=== PATIENT | female | born 1955 | race Caucasian/White ===

== ENCOUNTER 2021-06-26 20:14 | Emergency (ER) | payer MEDICARE ==
--- NOTE | 2021-06-26 20:34 | EDM.PDOC ---
<Huber Vital - Last Filed: 06/26/21 23:34> ED HPI GENERAL MEDICAL PROBLEM - General Chief Complaint: Fever Stated Complaint: FEVER FOR 15 DAYS, CAN'T EAT Time Seen by Provider: 06/26/21 20:18 - Related Data Allergies Allergy/AdvReac Type Severity Reaction Status Date / Time No Known Allergies Allergy Verified 06/26/21 20:32 Home Meds: Home Meds Magnesium Chloride [Magnesium] 64 mg PO BID 10 Days #20 tablet 06/26/21 [Rx] Course - Vital Signs Text/Narrative:: Monoclonal antibodies offered because of age but patient not sure she will take it Departure - Departure Time of Disposition: 23:34 Disposition: Home, Self-Care 01 Clinical Impression: Hypomagnesemia, COVID-19 - Discharge Information Prescriptions: Magnesium Chloride [Magnesium] 64 mg PO BID 10 Days #20 tablet Instructions: Hypomagnesemia, Viral Illness, Adult Referrals: PCP,None [Primary Care Provider] - Forms: ED Department Discharge Additional Instructions: Drink plenty of fluids [facility] - Primary Care [address] [place] [address] [id number] [address] [address] The following information is given to patients seen in the emergency department who are being discharged to home. This information is to outline your options for follow-up care. We provide all patients seen in our emergency department with a follow-up referral. The need for follow-up, as well as the timing and circumstances, are variable depending upon the specifics of your emergency department visit. If you don't have a primary care physician on staff, we will provide you with a referral. We always advise you to contact your personal physician following an emergency department visit to inform them of the circumstance of the visit and for follow-up with them and/or the need for any referrals to a consulting specialist. The emergency department will also refer you to a specialist when appropriate. This referral assures that you have the opportunity for follow-up care with a specialist. All of these measure are taken in an effort to provide you with optimal care, which includes your follow-up. Under all circumstances we always encourage you to contact your private physician who remains a resource for coordinating your care. When calling for follow-up care, please make the office aware that this follow-up is from your recent emergency room visit. If for any reason you are refused follow-up, please contact the [facility] Emergency Department at and asked to speak to the emergency department charge nurse. <SumterAlison E - Last Filed: 06/27/21 09:58> ED HPI GENERAL MEDICAL PROBLEM - General Source of Information: Reports: Patient History Limitations: Reports: No Limitations - History of Present Illness INITIAL COMMENTS - FREE TEXT/NARRATIVE: HISTORY AND PHYSICAL: History of present illness: Patient is a 65-year-old female who presents to the emergency room with concerns of subjective fevers, chills, decreased appetite x 2 weeks. Patient had a traumatic fall 9 weeks ago, which resulted in fractured ribs, pelvis and back. She had surgery (rods) to her thoracic and lumbar spine 9 weeks ago. She has not had any postoperative complications, incision site drainage/redness/swelling or unmanageable back/surgical site pain. She states she has had no appetite and when she tries to eat or drink she dry heaves. Patient denies any headache, change in vision, syncope or near syncope. Denies any chest pain, back pain, shortness of breath or cough. Denies any abdominal pain, diarrhea, constipation or dysuria. Has not noted any blood in urine or stool. Review of systems: As per history of present illness and below otherwise all systems reviewed and negative. Past medical history: As per history of present illness and as reviewed below otherwise noncontributory. Surgical history: As per history of present illness and as reviewed below otherwise noncontributory. Social history: See social history for further information Family history: As per history of present illness and as reviewed below otherwise noncontributory. Physical exam: General: Well developed and well nourished 65 year old female. Alert and orientated x 3. Nontoxic in appearance and in no acute distress. Vital signs are stable and have been reviewed by me. Nursing notes were reviewed. HEENT: Atraumatic, normocephalic, pupils equal and reactive bilaterally, negative for conjunctival pallor or scleral icterus, mucous membranes moist, TMs normal bilaterally, throat clear, neck supple, nontender, trachea midline. No drooling or trismus noted. No meningeal signs. No hot potato voice noted. Lungs: Clear to auscultation bilaterally. No wheezes, rales, or rhonchi. Chest nontender. Normal work of breathing, no accessory muscles used. Heart: S1S2, regular rate and rhythm without overt murmur, gallops, or rubs. No JVD. No peripheral edema Abdomen: Soft, nondistended, nontender. Normoactive bowel sounds. Negative for masses or costovertebral tenderness. Skin: Intact, warm, dry. No lesions or rashes noted. Hematologic: No petechiae or purpra. Mucosa appropriate color and normal nail bed color and refill. Extremities: Atraumatic, moves all extremities per self without difficulty or deficits, negative for cords or calf pain. Neurovascular unremarkable. Neuro: Awake, alert, oriented. Cranial nerves II through XII unremarkable. Cerebellum unremarkable. Motor and sensory unremarkable throughout. Exam nonfocal. Psychiatric: Mood and affect are appropriate. Normal thought process. Answering questions appropriately. Notes: *This patient was seen and evaluated during the 2019 SARS-CoV-2 novel coronavirus pandemic period. Community viral transmission is ongoing at time of this encounter and the emergency department is operating under pandemic response procedures. Patient is a 65-year-old female who presents to the emergency room with complaints of subjective fever, chills, nausea with dry heaves, and decreased appetite. Patient states she has had little to no p.o. intake over the past 2 weeks. She has yet to follow-up with her primary care provider. Her who is with her states he has not had any symptoms and overall feels well. Patient does appear clinically dehydrated. She has no chest, back, abdomen or pelvis pain. I did look at her incision from her surgery, appears like it is healing well. She states she has not had any postoperative complications. We will do basic lab work, COVID-19/influenza screening along with a chest x-ray. Due to recent surgery I will get blood cultures and a lactate. Patient's magnesium is low, will replace with IV magnesium 2 g. COVID-19 is positive. She does feel improved after fluids. We did do a PO challenge, successful. I have talked with the patient about today's findings, in addition to providing specific details for plan of care. Reassessment at the time of disposition demonstrates that the patient is in no acute distress. The patient is stable for discharge, counseling was provided and we discussed in great detail signs and symptoms that would prompt them to return to the Emergency Department. Medication, follow up and supportive care measures were reviewed and discussed. Voices understanding and is agreeable to plan of care. Denies any further questions or concerns at this time. Diagnostics: CBC, CMP, Magnesium, CXR, COVID, Influenza, [employer]: IV fluids, Magnesium 2 gm, Zofran Impression: Hypomagnesemia COVID-19 Definitive disposition and diagnosis as appropriate pending reevaluation and review of above. ED ROS GENERAL - Review of Systems Review Of Systems: Comprehensive ROS is negative, except as noted in HPI. ED EXAM, GENERAL - Physical Exam Exam: See Below (See dictation) Course - Vital Signs Last Recorded V/S: Last Vital Signs Temp 98 F 06/26/21 23:40 Pulse 62 06/26/21 23:40 Resp 18 06/26/21 23:40 BP 136/70 06/26/21 23:40 Pulse Ox 98 06/26/21 23:40 - Orders/Labs/Meds Orders: Active Orders 24 hr Category Date Time Status CULTURE BLOOD [BC] Stat Lab 06/26/21 20:45 Received CULTURE BLOOD [BC] Stat Lab 06/26/21 20:54 Received Blood Culture x2 Reflex Set [OM.PC] Stat Oth 06/26/21 20:25 Ordered Isolation [COMM] Routine Oth 06/26/21 20:27 Active Labs: Laboratory Tests 06/26/21 06/26/21 06/26/21 Range/Units 20:45 20:45 20:45 WBC 3.90 L (4.0-11.0) K/uL RBC 4.08 L (4.30-5.90) M/uL Hgb 12.1 (12.0-16.0) g/dL Hct 34.8 L (36.0-46.0) % MCV 85.3 (80.0-98.0) fL MCH 29.7 (27.0-32.0) pg MCHC 34.8 (31.0-37.0) g/dL RDW Std Deviation 44.2 (28.0-62.0) fl RDW Coeff of Joss 14 (11.0-15.0) % Plt Count 201 (150-400) K/uL MPV 10.70 (7.40-12.00) fL Neut % (Auto) 70.5 (48.0-80.0) % Lymph % (Auto) 14.1 L (16.0-40.0) % Wetzel % (Auto) 15.4 H (0.0-15.0) % Eos % (Auto) 0.0 (0.0-7.0) % Baso % (Auto) 0.0 (0.0-1.5) % Neut # (Auto) 2.8 (1.4-5.7) K/uL Lymph # (Auto) 0.6 (0.6-2.4) K/uL Wetzel # (Auto) 0.6 (0.0-0.8) K/uL Eos # (Auto) 0.0 (0.0-0.7) K/uL Baso # (Auto) 0.0 (0.0-0.1) K/uL Nucleated RBC % 0.0 /100WBC Nucleated RBCs # 0 K/uL Sodium 136 (136-145) mmol/L Potassium 4.0 (3.5-5.1) mmol/L Chloride 101 (98-107) mmol/L Carbon Dioxide 21.1 (21.0-32.0) mmol/L BUN 17 (7.0-18.0) mg/dL Creatinine 1.2 H (0.6-1.0) mg/dL Est Cr Clr Drug Dosing 43.17 mL/min Estimated GFR (MDRD) 44.9 ml/min Glucose 115 H (74-106) mg/dL Lactic Acid 1.2 (0.4-2.0) mmol/L Calcium 8.3 L (8.5-10.1) mg/dL Magnesium 1.3 L (1.8-2.4) mg/dL Total Bilirubin 0.4 (0.2-1.0) mg/dL AST 29 (15-37) IU/L ALT 23 (14-63) IU/L Alkaline Phosphatase 69 (46-116) U/L Troponin I 0.055 (0.000-0.056) ng/mL Total Protein 6.5 (6.4-8.2) g/dL Albumin 3.0 L (3.4-5.0) g/dL Globulin 3.5 (2.6-4.0) g/dL Albumin/Globulin Ratio 0.9 (0.9-1.6) SARS-CoV-2 RNA (JJ) (NEGATIVE) 06/26/21 Range/Units 20:45 WBC (4.0-11.0) K/uL RBC (4.30-5.90) M/uL Hgb (12.0-16.0) g/dL Hct (36.0-46.0) % MCV (80.0-98.0) fL MCH (27.0-32.0) pg MCHC (31.0-37.0) g/dL RDW Std Deviation (28.0-62.0) fl RDW Coeff of Joss (11.0-15.0) % Plt Count (150-400) K/uL MPV (7.40-12.00) fL Neut % (Auto) (48.0-80.0) % Lymph % (Auto) (16.0-40.0) % Wetzel % (Auto) (0.0-15.0) % Eos % (Auto) (0.0-7.0) % Baso % (Auto) (0.0-1.5) % Neut # (Auto) (1.4-5.7) K/uL Lymph # (Auto) (0.6-2.4) K/uL Wetzel # (Auto) (0.0-0.8) K/uL Eos # (Auto) (0.0-0.7) K/uL Baso # (Auto) (0.0-0.1) K/uL Nucleated RBC % /100WBC Nucleated RBCs # K/uL Sodium (136-145) mmol/L Potassium (3.5-5.1) mmol/L Chloride (98-107) mmol/L Carbon Dioxide (21.0-32.0) mmol/L BUN (7.0-18.0) mg/dL Creatinine (0.6-1.0) mg/dL Est Cr Clr Drug Dosing mL/min Estimated GFR (MDRD) ml/min Glucose (74-106) mg/dL Lactic Acid (0.4-2.0) mmol/L Calcium (8.5-10.1) mg/dL Magnesium (1.8-2.4) mg/dL Total Bilirubin (0.2-1.0) mg/dL AST (15-37) IU/L ALT (14-63) IU/L Alkaline Phosphatase (46-116) U/L Troponin I (0.000-0.056) ng/mL Total Protein (6.4-8.2) g/dL Albumin (3.4-5.0) g/dL Globulin (2.6-4.0) g/dL Albumin/Globulin Ratio (0.9-1.6) SARS-CoV-2 RNA (JJ) POSITIVE H (NEGATIVE) Meds: Medications Discontinued Medications Generic Name Dose Route Start Last Admin Trade Name Freq PRN Reason Stop Dose Admin Sodium Chloride 1,000 mls @ 999 mls/hr 06/26/21 20:59 06/26/21 21:08 Normal Saline IV 06/26/21 21:59 999 mls/hr STAT ONE Administration Magnesium Sulfate 2 gm/ Premix 50 mls @ 12.5 mls/hr 06/26/21 21:33 06/26/21 22:30 IV 06/27/21 01:32 50 mls/hr ONETIME ONE Infusion Ondansetron HCl 4 mg 06/26/21 20:59 06/26/21 21:08 Ondansetron 4 Mg/2 Ml Sdv IVPUSH 06/26/21 21:00 4 mg ONETIME ONE Administration Sepsis Event Note (ED) - Focused Exam Vital Signs: Vital Signs Temp Pulse Resp BP Pulse Ox 06/26/21 23:40 98 F 62 18 136/70 98 06/26/21 21:58 98.1 F 60 18 138/68 100 - My Orders Last 24 Hours: My Active Orders 06/26/21 20:25 Blood Culture x2 Reflex Set [OM.PC] Stat 06/26/21 20:27 Isolation [COMM] Routine 06/26/21 20:45 CULTURE BLOOD [BC] Stat 06/26/21 20:54 CULTURE BLOOD [BC] Stat - Assessment/Plan Last 24 Hours: My Active Orders 06/26/21 20:25 Blood Culture x2 Reflex Set [OM.PC] Stat 06/26/21 20:27 Isolation [COMM] Routine 06/26/21 20:45 CULTURE BLOOD [BC] Stat 06/26/21 20:54 CULTURE BLOOD [BC] Stat
--- NOTE | 2021-06-26 20:53 | CR ---
INDICATION: Fever TECHNIQUE: Chest 1 view. COMPARISON: None FINDINGS: Cardiovascular and mediastinum: Heart size and vasculature are normal in caliber and appearance. Mediastinum is within normal limits. Lungs and pleural space: Lungs are clear. No sign of infiltrate or mass. No sign of pleural effusion. No pneumothorax. Bones and soft tissues: No significant findings. Posterior spinal rods thoraco lumbar spine. IMPRESSION: Unremarkable chest. Dictated by Bucky Hyde MD @ 06/26/2021 8:51:[address] Bucky Hyde @ Jun 26 2021 8:51PM
[2021-06-26] MEDS ORDERED: Ondansetron 4 MG/2 ML SDV IVPUSH ONE (20:59)
[2021-06-26] MEDS ORDERED: Sodium Chloride 0.9% 1,000 ML IV ONE (20:59)
--- NOTE | 2021-06-26 21:01 | PCM.EKG ---
#1 Interpretation EKG Interpretation Comments: EKG date 06/26/2021 time 2053 Rate 67 rhythm sinus rhythm AK interval 171 QT interval 452 [place] 64 Borderline repolarization abnormality reflected in the ST segments. No prior for comparison. Impression no obvious injury
[2021-06-26 21:25] LABS: CARBON DIOXIDE,CO2 21.1 mmol/L (21.0-32.0)
[2021-06-26] MEDS ORDERED: Magnesium Sulfate/Water 2 GM in Premix Bag 1 BAG IV ONE (21:33)
== END 2021-06-26 23:40 | disposition home or self-care (01) ==
LOC: MW.ED 20:14
DX: U07.1 COVID-19 (principal); E83.42 Hypomagnesemia
CPT/HCPCS: 36415; 71045; 80053; 83605; 83735; 84484; 85025; 87040; 87804; 93005; 96365; 96375; 99284; J2405; J3475; J7030; U0002